=== PATIENT | female | born 1995 | race Caucasian/White ===

== ENCOUNTER 2020-07-14 07:11 | Emergency (ER) | payer MEDICAID, SELFPAY ==
[~2020-07-14] VITALS: Ht 162.6 cm; Wt 63.5 kg
[2020-07-14 07:13] VITALS: Ht 162.6 cm; Wt 63.5 kg
[2020-07-14] MEDS ORDERED: PROAIR HFA8.5 GM INH (10:51)
[2020-07-14] MEDS ORDERED: PREDNISONE20 MG PO (10:51)
[2020-07-14] MEDS ORDERED: CLARITIN10 MG PO (10:51)
[2020-07-14] MEDS ORDERED: ZITHROMAX Z-PA250 MG PO (10:51)
[2020-07-14 12:01] VITALS: BP 128/78
== END 2020-07-14 12:01 | disposition home or self-care (01) ==
LOC: ED 07:11
DX: J45.901 Unspecified asthma with (acute) exacerbation (principal)
CPT/HCPCS: J7512; J7613; J7644